=== PATIENT | female | born 1995 | race Caucasian/White ===

== ENCOUNTER 2021-06-19 15:53 | Inpatient (IN) | payer OTHER ==
[~2021-06-19] VITALS: Ht 170.2 cm; Wt 125.2 kg
[2021-06-19 16:49] LABS: HCT 33.5 % (37.0-47.0); HGB 11.2 g/dl (12.5-16.0); MCH 28.4 pg (25.0-31.0); MCHC 33.4 g/dL (32.0-36.0); MPV 10.6 fL (6.0-9.5); RBC 3.94 M/uL (4.20-5.40); WBC 11.3 K/uL (4.0-10.5)
[2021-06-19 16:51] LABS: BILIRUBIN NEGATIVE (NEGATIVE); BLOOD NEGATIVE Ery/uL (NEGATIVE); CLARITY CLEAR (CLEAR); COLOR YELLOW (YELLOW); GLUCOSE (U) NORMAL (NORMAL); LEUKOCYTES TRACE Leu/uL (NEGATIVE); NITRITE NEGATIVE (NEGATIVE); PROTEIN TRACE (LOW) mg/dL (NEGATIVE); SPECIFIC GRAVITY 1.025 (1.001-1.030); UROBILINOGEN 0.2 mg/dL (0.2-1.0)
[2021-06-19 16:56] LABS: AMPHETAMINES NEGATIVE (NEGATIVE); BARBITURATES NEGATIVE (NEGATIVE); ECSTASY (MDMA) NEGATIVE (NEGATIVE); MARIJUANA (THC) NEGATIVE (NEGATIVE); METHADONE NEGATIVE (NEGATIVE); OPIATES NEGATIVE (NEGATIVE); OXYCODONE NEGATIVE (NEGATIVE)
[2021-06-19 17:00] LABS: BACTERIA 1+; SQUAMOUS EPITHELIAL CELLS 20-50
[2021-06-21 06:50] LABS: BASOPHIL 0.3 % (0-2); HCT 32.3 % (37.0-47.0); HGB 10.4 g/dl (12.5-16.0); LYMPHOCYTE 26.8 % (15-48); MCH 27.9 pg (25.0-31.0); MCHC 32.2 g/dL (32.0-36.0); MCV 86.6 fL (78.0-100.0); MONOCYTE 8.7 % (0-12); MPV 10.8 fL (6.0-9.5); NEUTROPHIL 61.4 % (41-80); NRBC 0; PLT 219 K/uL (150-400); RBC 3.73 M/uL (4.20-5.40); RDW 14.8 % (11.5-14.0); WBC 10.3 K/uL (4.0-10.5)
== END 2021-06-21 08:13 | disposition home or self-care (01) | DRG 807 ==
LOC: FOB 15:53
PROVIDERS: ADMIT Obstetrics & Gynecology
PROC: 10E0XZZ Delivery of Products of Conception, External Approach (ICD-10-PCS; principal; 2021-06-20)
PROC: 3E0P7VZ Introduction of Hormone into Female Reproductive, Via Natural or Artificial Opening (ICD-10-PCS; 2021-06-20)
DX: O36.4XX0 Maternal care for intrauterine death, not applicable or unspecified (principal); Z37.1 Single stillbirth; Z3A.35 35 weeks gestation of pregnancy; Z20.822 Contact with and (suspected) exposure to COVID-19; O26.893 Other specified pregnancy related conditions, third trimester; R82.5 Elevated urine levels of drugs, medicaments and biological substances; O99.214 Obesity complicating childbirth; O35.8XX0 Maternal care for other (suspected) fetal abnormality and damage, not applicable or unspecified; O99.02 Anemia complicating childbirth; O69.81X0 Labor and delivery complicated by cord around neck, without compression, not applicable or unspecified; O99.824 Streptococcus B carrier state complicating childbirth; R82.71 Bacteriuria; O99.334 Smoking (tobacco) complicating childbirth; Z67.10 Type A blood, Rh positive; Z14.1 Cystic fibrosis carrier
CPT/HCPCS: 36415; 80305; 81001; 85025; 85460; 86850; 86900; 86901; 87070; 87075; 87205; J2300; J7120; U0002